=== PATIENT | female | born 1990 | race Hispanic/Latino ===

== ENCOUNTER 2018-07-17 06:43 | Outpatient (CLI) | payer BC ==
--- NOTE | 2018-07-17 08:04 | ULT ---
RIGHT UPPER QUADRANT ULTRASOUND: Date: 07/17/18 PROVIDED CLINICAL HISTORY: Right upper quadrant pain. FINDINGS: The visualized portions of the pancreas and IVC appear normal. Diffusely increased echogenicity of he patic parenchyma compatible with fatty infiltration. No evidence for mass or intrahepatic biliary annita aury dilatation. Common duct is not dilated. Gallbladder is contracted with prominence of the gallblad brigette wall. Shadowing echogenic focus present within the gallbladder lumen compatible with gallstone. S onographic Zuniga's sign is documented as negative. Right kidney demonstrates no hydronephrosis or ma ss. IMPRESSION: 1. Fatty infiltration of the liver. 2. Cholelithiasis. POS: EDMUNDO
== END 2018-07-17 06:44 | disposition home or self-care (01) ==
LOC: BICULT 06:43
PROVIDERS: ATTEND Internal Medicine
DX: R10.11 Right upper quadrant pain (principal); K80.20 Calculus of gallbladder without cholecystitis without obstruction; K76.0 Fatty (change of) liver, not elsewhere classified
CPT/HCPCS: 76705

== ENCOUNTER 2019-01-20 06:51 | Outpatient (CLI) | payer BC ==
[2019-01-20 10:27] LABS: #Eosinphils 0.1 thou/uL (0.0-0.7); #Lymphocytes 1.9 thou/uL (1.20-3.40); #Monocytes 0.4 thou/uL (0.11-0.59); #Neutrophils 4.4 thou/uL (1.40-6.50); %Basophils 0.6 % (0.0-1.0); %Eosinophils 1.8 % (0.0-10.0); %Lymphocytes 27.2 % (21.0-51.0); %Monocytes 5.9 % (0.0-10.0); %Neutrophils 64.4 % (42.0-75.0); Hemoglobin 13.5 g/dL (12.0-16.0); Mean Corpuscular HGB CONC 34.5 g/dL (32.0-36.0); Mean Corpuscular Hemoglobin 30.3 pg (27.0-31.0); Mean Corpuscular Volume 87.8 fL (78.0-98.0); Mean Platelet Volume 7.5 fL (7.4-10.4); Platelet Count 248 thou/uL (130-400); RBC Distribution Width 11.1 % (11.5-14.5); Red Blood Cell (RBC) Count 4.47 mill/uL (4.20-5.40); White Blood Cell (WBC) Count 6.8 thou/uL (4.8-10.8)
[2019-01-20 11:06] LABS: BHCG - Serum Negative (NEGATIVE); Pregs Control Background? CLEAR/WHITE (CLR/WHITE); Pregs Control Bar Appear? YES (CONTROL BAR)
[2019-01-20 11:10] LABS: ALT (SGPT) 65 U/L (8-55); AST (SGOT) 29 U/L (5-34); Albumin 4.5 g/dL (3.5-5.0); Alkaline Phosphatase 137 U/L (40-150); Anion Gap 11 mmol/L (10-20); BUN (Urea Nitrogen) 9 mg/dL (7.0-18.7); Bilirubin, Total 0.5 mg/dL (0.2-1.2); Calc. Creatinine Clearance 0 mL/min (70-130); Calcium 9.3 mg/dL (7.8-10.44); Carbon Dioxide 24 mmol/L (22-29); Chloride 109 mmol/L (98-107); Estimated GFR-MDRD Greater than 90; Globulin 2.5 g/dL (2.4-3.5); Glucose 92 mg/dL (70-105); Potassium 4.4 mmol/L (3.5-5.1); Sodium 140 mmol/L (136-145)
== END 2019-01-20 06:52 | disposition home or self-care (01) ==
LOC: LABBT 06:51
PROVIDERS: ATTEND Specialist
DX: Z01.812 Encounter for preprocedural laboratory examination (principal); K80.00 Calculus of gallbladder with acute cholecystitis without obstruction
CPT/HCPCS: 80053; 84703; 85025

== ENCOUNTER 2019-01-23 05:53 | Day surgery (SDC) | payer BC ==
[2019-01-20 10:02] VITALS: BMI 26.5
--- NOTE | 2019-01-20 13:52 | HP ---
HISTORY OF PRESENT ILLNESS: Shaila Lopez is a 28-year-old female, whom I saw in July 2018 for symptomatic cholelithiasis. At that time, she financially was unable to schedule her surgery, but now reports ready to schedule her laparoscopic cholecystectomy. She works for [employer]. She has had intermittent right upper quadrant pain, back radiation, associated nausea since I saw her last. Previous ultrasound 07/17/2018 revealed fatty infiltration of liver, cholelithiasis, positive sonographic Zuniga sign, and normal bile duct caliber. ALLERGIES: NONE. SOCIAL HISTORY: Tobacco, none. Alcohol, none. PAST SURGICAL HISTORY: 2014. PAST MEDICAL HISTORY: Cholelithiasis. MEDICATIONS: Valacyclovir. REVIEW OF SYSTEMS: Ten-point noncontributory. FAMILY HISTORY: Noncontributory. PHYSICAL EXAMINATION: VITAL SIGNS: 152 pounds, 63 inches, 122/69, 79, 98.6 degrees. HEAD, EARS, EYES, NOSE, AND THROAT: Unremarkable. Sclerae nonicteric. LUNGS: Clear to auscultation. CARDIAC: Rhythm without murmur or gallop. ABDOMEN: Soft, mild tenderness in right upper quadrant. No guarding or rebound. EXTREMITIES: Unremarkable. No ankle edema. ASSESSMENT AND PLAN: Symptomatic cholelithiasis. Recommend laparoscopic video cholecystectomy. Risks of infection, bleeding, visceral and biliary injury, open procedure discussed. She consents. Questions answered. Job ID: [id number]
[2019-01-23] MEDS ORDERED: Scopolamine 1.5 mg/72 hour Patch ONE (06:13)
[2019-01-23] MEDS ORDERED: Ketorolac Tromethamine 30 MG/ML VIAL ONE (06:13)
[2019-01-23] MEDS ORDERED: Fentanyl 100 MCG/2 ML VIAL ONE (06:21)
[2019-01-23] MEDS ORDERED: Bupivacaine/Epinephrine 0.25% 30 ML VIAL ONE (06:38)
[2019-01-23] MEDS ORDERED: SUGAMMADEX SODIUM 500 MG/5 ML VIAL ONE (08:29)
[2019-01-23] MEDS ORDERED: Meperidine HCl/PF 25 MG/ML VIAL ONE (08:54)
[2019-01-23] MEDS ORDERED: Promethazine HCl 25 MG/ML VIAL ONE (08:59)
[2019-01-23] MEDS ORDERED: traMADol HCl 50 MG TAB ONE (10:29)
[2019-01-23] MEDS ORDERED: PROPOFOL 200 MG/20 ML VIAL ONE (11:24)
[2019-01-23] MEDS ORDERED: Lidocaine 1% PF 5 ML VIAL ONE (11:24)
[2019-01-23] MEDS ORDERED: Dexamethasone 20 MG/5 ML VIAL ONE (11:24)
[2019-01-23] MEDS ORDERED: Ondansetron PF 4 MG/2 ML Vial ONE (11:24)
[2019-01-23] MEDS ORDERED: Rocuronium Bromide 10 MG/ML (10ML VIAL) ONE (11:24)
--- NOTE | 2019-01-23 12:37 | OP ---
DATE OF PROCEDURE: 01/23/2019 PREOPERATIVE DIAGNOSES: Cholecystitis and cholelithiasis, chronic. POSTOPERATIVE DIAGNOSES: Cholecystitis and cholelithiasis, chronic. PROCEDURE PERFORMED: Laparoscopic video cholecystectomy. ANESTHESIA: General, local 0.5% Marcaine with epinephrine, 30 mL. FINDINGS: Very large gallstone, normal liver. DESCRIPTION OF PROCEDURE: The patient was taken to the operating room, where under general anesthesia in supine position, abdomen was prepared with ChloraPrep and draped in routine fashion. Local anesthetic was infiltrated in the skin and subcutaneous tissue about each port sites. An infraumbilical incision was made. Pneumoperitoneum to 15 mmHg obtained with a Veress needle, replaced with a 5 port and laparoscope inserted. Right lateral subcostal incision made and a 5 port placed midclavicular and anterior axillary lines. Right subxiphoid incision was made and 11 port placed. Fundus of the gallbladder was grasped at the cephalad. Infundibulum grasped and reflected laterally. Cystic artery and duct dissected free, critical view obtained. Cystic artery and duct double clipped proximally, divided, gallbladder dissected free from liver bed obtaining good hemostasis prior to division of final peritoneal attachments. Gallbladder and gallstones removed, submitted to Pathology. Good hemostasis ensured with cautery. Irrigant and pneumoperitoneum evacuated. All instruments removed. All skin incisions were approximated with interrupted subdermal 4-0 Monocryl and Dermaglue applied. Job ID: [id number]
== END 2019-01-23 10:53 | disposition home or self-care (01) ==
LOC: SDC 05:53
PROVIDERS: ATTEND Specialist
PROC: 0FT44ZZ Resection of Gallbladder, Percutaneous Endoscopic Approach (ICD-10-PCS; principal; 2019-01-23)
DX: K80.10 Calculus of gallbladder with chronic cholecystitis without obstruction (principal); Z79.899 Other long term (current) drug therapy
CPT/HCPCS: 88304; J0131; J1100; J1885; J2001; J2175; J2405; J2550; J2704; J3010